=== PATIENT | female | born 1990 | race Caucasian/White ===

== ENCOUNTER 2025-01-28 16:00 | Emergency (ER) | payer OTHER, SELFPAY ==
[2025-01-28 16:02] VITALS: BP 179/119
--- NOTE | 2025-01-28 16:45 | ED.GENMED ---
History of Present Illness
General
Chief Complaint: Flank Pain
Source: patient
Exam Limitations: none
Time Seen by Provider: 01/28/25 16:38
Nursing documentation reviewed up to this point in time: agreed with
History of Present Illness
History of Present Illness:
The patient is a 34-year-old female with history of kidney stones who presents with sharp pain in the right flank region, which started 3 days ago. The patient describes the pain as intense, currently rating it seven to eight out of ten in severity.
Along with the pain, she experiences a sensation of urgency to urinate. The patient reports mild nausea accompanying the pain but denies vomiting. She has not attempted any pain relief on her own. Her menstrual period ended three days ago. Denies
fever/chills.
Past History
Past History
ED Past Medical History: Hyperthyroidism and Other (kidney stone)
ED Past Surgical History: Other (Gastric bypass)
Social History
Tobacco: Non-smoker
Alcohol: None
Drug: None
Personal: Single
Living: with family
Employment: Employed
Family History
Family History: Other (Noncontributory)
Review of Systems
Review of Systems
Allergies reviewed?: Yes
All Other Systems: ROS reviewed and negative except as documented in HPI and ROS
Constitutional: Denies fever or chills
ABD/GI: Reports nausea (mild, intermittent); Denies abdominal pain, vomiting or diarrhea
: Reports frequency and flank pain (right); Denies dysuria, difficulty voiding or urgency
Phy Exam
Physical Exam
Physical Exam:
GENERAL: No acute distress. A&Ox3.
CONSTITUTIONAL: Afebrile.
EYES: clear, conjunctivae normal
ENMT: moist mucus membranes
RESPIRATORY: Regular respirations, nonlabored, lungs clear.
CARDIOVASCULAR: Regular rate and rhythm, no murmurs, no rubs.
GI: Soft, nontender, normal BS
MUSCULOSKELETAL: Moves with ease. Well perfused.
SKIN: Warm, dry, pink
PSYCH: Normal mood and affect. Well kept, interactive and appropriate
NEUROLOGIC: Awake, alert and oriented. No focal neurological deficits
Course
Orders/Labs/Results
Orders:
Orders
01/28/25 16:44
CT Abd/pel Without Iv Or Oral Urgent
Comment:
Reason For Exam: R flank pain, hx stones
IV Insert/Care/Rem.- Treatment PRN
0.9% Sodium Chloride 1000 ml [Nss] 1,000 ml IV BOLUS
Ketorolac [Toradol] 15 mg IV NOW STA
Test Result ONCE
01/28/25 17:20
Complete Blood Count/With Diff Urgent
Comprehensive Metabolic Panel Urgent
HCG, Serum Qualitative Screen Urgent
Urinalysis Reflex To Culture Urgent
Date Specimen was Collected: 01/28/25
Time Specimen was Collected: 17:14
Urine Microscopic Reflex Cult Urgent
Urine Culture Urgent
BESSIE Source: U
Specimen Description:
Date Specimen was Collected: 01/28/25
Time Specimen was Collected: 17:14
01/28/25 19:01
Hydrocodone 5/APAP 325 [Riverside 5/325] 1 tablet PO NOW STA
Abnormal Lab Results
01/28/25
17:20
RBC 3.99 L 10^6/uL
(4.20-5.40)
Hct 35.6 L %
(37.0-47.0)
MCH 31.1 H pg
(27.0-31.0)
MPV 11.5 H fL
(7.4-10.4)
Chloride 111 H mmol/L
(98-107)
Carbon Dioxide 21 L mmol/L
(22-30)
Creatinine 1.1 H mg/dL
(0.6-1.0)
Ur Occult Blood Reflex 4+ A
(Negative)
Leukocyte Esterase Rfl 1+ A
(Negative)
Urine RBC 30-40 A /HPF
(0-2)
Urine Bacteria (Reflex) Moderate A
(Negative)
Urine Albumin (Reflex) 2+ A
(Neg - Trace)
01/28/25 17:20
01/28/25 17:20
Vital Signs
Initial and Last Documented VS:
Initial Vital Signs
Temp Pulse Resp BP Pulse Ox
98.0 F 105 20 179/119 99
01/28/25 16:02 01/28/25 16:02 01/28/25 16:02 01/28/25 16:02 01/28/25 16:02
Last Documented Vital Signs
Temp Pulse Resp BP Pulse Ox
98.0 F 76 20 136/83 99
01/28/25 16:02 01/28/25 18:02 01/28/25 16:02 01/28/25 18:22 01/28/25 18:30
MDM/Problems Addressed
Differential Diagnosis Includes:
UTI, kidney stone, pyelonephritis, hydronephrosis
MDM/Problems Addressed:
The patient is a 34-year-old female with history of kidney stones who presents with sharp pain in the right flank region, which started 3 days ago. The patient describes the pain as intense, currently rating it seven to eight out of ten in severity.
Along with the pain, she experiences a sensation of urgency to urinate. The patient reports mild nausea accompanying the pain but denies vomiting. She has not attempted any pain relief on her own. Her menstrual period ended three days ago. Denies
fever/chills.
Plan:
- Initiate an intravenous line.
- Administer ketorolac for pain management.
- Conduct basic blood work.
- Obtain a CT scan to evaluate for stone/obstruction
- Review the urine sample that has been provided.
- Medication for nausea to be considered if needed.
6:00 PM:
CBC normal
CMP with no clinically significant abnormality
hCG negative
UA: 30-40 RBCs, +1 leukocytes, negative nitrite, moderate bacteria
7:[address] radiology report read: IMPRESSION:
3 mm calculus at the right ureterovesical junction with moderate obstructive uropathy.
Less than 1 mm mid pole right intrarenal nonobstructing calculus.
Patient is comfortable, pain is minimal. Stable for discharge
*Pulse Oximetry
SaO2: 99
Oxygen Mode of Delivery: Room air
Patient hypoxic: not evaluated
*Critical Care Note
Total Time (30-74mins, 75-104mins- exclusive of procedures): Not Applicable
ED Attending Note
-
Portions of this chart may have been created with voice recognition software.� Occasional wrong word or��sound alike� substitutions may have occurred due to the inherent limitations of voice recognition software.
Discharge Plan
Departure
Patient Disposition: Home (Routine Discharge)
Date of Disposition: 01/28/25
Time of Disposition: 19:02
Patient with high blood pressure during this ER visit?: No
Condition: Good
Discharge Problem:
Calculus of distal right ureter
Instructions: Kidney Stones (DC), How to Strain Your Urine
Prescriptions:
New
hydrocodone-acetaminophen 5-325 mg tablet
1 tab PO Q6H PRN (Reason: Pain) Qty: 4 0RF
No Action
etonogestrel-ethinyl estradiol [NuvaRing] 1 VAG.RING ring
1 vag.ring VG MONTHLY
venlafaxine [Effexor XR] 150 MG capsule,extended release 24hr
150 mg PO HS
methimazole 5 MG tablet
5 mg PO HS
Referrals:
Fish Fragoso MD [Active, Urology] - Call in 1-3 days for appt
Med Luna MD [Family Provider, Family Practice]
Activity Restrictions/Additional Instructions:
As we discussed, I sent a prescription to your pharmacy for Riverside (hydrocodone) narcotic pain medication
Ibuprofen 600 mg, with food, every 6 hours as needed for mild to moderate pain and use the Riverside if needed for worse pain.
I provided you with information for the urologist for follow-up.
Return here immediately for worsening pain not relieved with ibuprofen or Riverside, fever or chills or feeling sicker in any way.
Interventions
Interventions:
*Risk Screen - Suicide Last Done: 01/28/25 18:09
*General Assessment Last Done: 01/28/25 16:02
*Neglect/Abuse Screening Last Done: 01/28/25 18:09
*ED- Fall Risk Assessment Last Done: 01/28/25 18:09
*ED COVID-19 Vaccine History Last Done: 01/28/25 18:09
FC-Xznmmc-Lyqlzljtkl Assessment Last Done: 01/28/25 18:10
ED-Female Genitourinary Assessment Last Done: 01/28/25 18:10
Discharge Date and Time
Print Language: SRI LANKAN
[2025-01-28 17:14] VITALS: BMI 40.6
[2025-01-28] MEDS: TORADOL 15 MG IV (17:20)
[2025-01-28] MEDS: NSS 1000 IV (17:22)
[2025-01-28 17:33] LABS: % Basophils 0.8 % (0-2); % Eosinophils 2.4 % (0-6); % Immature Granulocytes 0.2 % (0-0.5); % Lymphocytes 29.7 % (20.5-51.1); % Monocytes 6.5 % (1.7-9.3); % Neutrophils 60.4 % (42.2-75.2); Absolute Basophils 0.1 10^3/uL (0-0.2); Absolute Eosinophils 0.2 10^3/uL (0-0.7); Absolute Lymphocytes 2.5 10^3/uL (1.2-3.4); Absolute Monocytes 0.6 10^3/uL (0.1-0.6); Absolute Neutrophils 5.1 10^3/uL (1.4-6.5); Hematocrit 35.6 % (37.0-47.0); Hemoglobin 12.4 g/dL (12.0-16.0); Mean Corp Hgb Conc. 34.8 g/dL (33.0-37.0); Mean Corpuscular Hgb 31.1 pg (27.0-31.0); Mean Corpuscular Volume 89.2 fL (81.0-99.0); Mean Platelet Volume 11.5 fL (7.4-10.4); Nucleated Red Blood Cells % 0 %; Platelet Count 207 10^3/uL (130-400); Red Blood Cell Count 3.99 10^6/uL (4.20-5.40); Red Cell Dist. Width 12.4 % (11.5-14.5); White Blood Cell Count 8.5 10^3/uL (4.8-10.8)
[2025-01-28 17:35] LABS: Urine Albumin 2+ (Neg - Trace); Urine Bilirubin Negative (Negative); Urine Character Clear (Clear); Urine Color Yellow; Urine Glucose Negative (Negative); Urine Ketone Negative (Negative); Urine Leukocyte 1+ (Negative); Urine Nitrite Negative (Negative); Urine Occult Blood 4+ (Negative); Urine Urobilinogen Negative (Neg - 1+)
[2025-01-28 17:43] LABS: Urine Calcium Oxalate Crystals Present
[2025-01-28 17:45] LABS: HCG, Serum Qualitative Screen Negative; Urine Bacteria Moderate (Negative); Urine Red Blood Cell 30-40 /HPF (0-2)
[2025-01-28 18:01] LABS: ALT (SGPT) 14 U/L (0-35); AST (SGOT) 22 U/L (14-36); Albumin 4.3 g/dl (3.5-5.0); Alkaline Phosphatase 61 U/L (38-126); Blood Urea Nitrogen 17 mg/dl (7-17); Calcium 8.5 mg/dl (8.4-10.2); Carbon Dioxide 21 mmol/L (22-30); Chloride 111 mmol/L (98-107); Estimated Creatinine Clearance 70 ml/min; Glucose 99 mg/dl (70-99); Potassium 3.8 mmol/L (3.5-5.1); Sodium 138 mmol/L (135-145); Total Bilirubin 0.4 mg/dl (0.2-1.3); Total Protein 7.1 g/dl (6.3-8.2); eGFR > 60.00
[2025-01-28 18:22] VITALS: BP 136/83
[2025-01-28 19:00] VITALS: BP 145/94
== END 2025-01-28 19:53 | disposition home or self-care (01) ==
LOC: EMR 16:00
PROVIDERS: Registered Nurse; EMERGENCY PHYSICIAN Emergency Medicine; FAMILY PHYSICIAN Family Medicine
DX: R10.9 Unspecified abdominal pain (principal); E05.90 Thyrotoxicosis, unspecified without thyrotoxic crisis or storm; N20.1 Calculus of ureter; Z87.442 Personal history of urinary calculi; Z98.84 Bariatric surgery status
CPT/HCPCS: 99284; 74176; 80053; 81003; 81015; 84703; 85025; 87086

== ENCOUNTER 2025-04-03 04:01 | Emergency (ER) | payer OTHER, SELFPAY ==
[2025-04-03 04:03] VITALS: BP 158/112
[2025-04-03 04:18] VITALS: BMI 42.5
[2025-04-03] MEDS: BENADRYL 25 MG PO (05:04)
[2025-04-03] MEDS: DECADRON 10 MG PO (05:05)
--- NOTE | 2025-04-03 05:06 | ED.GENMED ---
History of Present Illness
General
Chief Complaint: Allergic Reaction
Source: patient
Exam Limitations: none
Time Seen by Provider: 04/03/25 04:15
Nursing documentation reviewed up to this point in time: agreed with
History of Present Illness
History of Present Illness:
Note:
CHIEF COMPLAINT(S)
Facial swelling and swelling in other parts of the body.
HISTORY OF PRESENT ILLNESS
The patient is a 34-year-old female presenting with facial swelling that began the previous Wednesday afternoon. Initially, she noticed swelling in her body, which then progressed to her face and lips overnight. The patient reports no prior episodes of
similar symptoms. She denies any recent changes in soaps, foods, or any known allergens. No difficulty in breathing or swallowing was noted during the conversation.
PAST MEDICAL AND SURGICAL HISTORY
The patient has a history of thyroid-related issues. No recent surgeries were discussed.
MEDICATIONS
- Thyroid medication (specific name not mentioned)
- Aplexor (potential misspelling, indication unclear)
- Atenolol
PLAN
The patient will be administered a steroid and observed for improvement in symptoms. She will be provided with a prescription for oral steroids for home use and advised to take Benadryl as needed, particularly avoiding activities such as driving
when using Benadryl. Additionally, a prescription for an EpiPen will be provided for potential future anaphylactic events given the unknown trigger of the current symptoms. The patient is advised to refrain from attending work today due to
medication effects.
DIFFERENTIAL DIAGNOSIS
The Differential Diagnosis includes, in no particular order and is not limited to:
1. Allergic reaction
2. Angioedema
3. Anaphylaxis
4. Drug-induced hypersensitivity reaction
5. Contact dermatitis
6. Acute urticaria
7. Food allergy
8. Autoimmune disorder
9. Thyroid disorder-related manifestations
10. Idiopathic swelling
SOCIAL HISTORY
The patient works for the formerly [employer].
Disposition:
SUMMARY OF ENCOUNTER
The patient is a 34-year-old female who presented to the emergency department with facial swelling and swelling in other parts of the body without any breathing or swallowing difficulties. The swelling began the previous Wednesday, starting with her
body and progressing to her face and lips overnight. The patient has no history of similar episodes and denies any known allergens or changes in soaps or foods. Given the uncertain trigger and her medical history, she was treated with steroids in
the emergency department, resulting in significant improvement in symptoms.
DISPOSITION
Discharge
ASSESSMENT
The patient likely experienced an allergic reaction to an unknown substance.
PLAN
The patient is to be discharged with a prescription for oral steroids to manage symptoms at home. She is advised to use Benadryl as needed, with caution advised against engaging in activities such as driving when using Benadryl. Additionally, she is
to be provided with a prescription for an EpiPen for potential future anaphylactic events.
PATIENT EDUCATION AND COUNSELING
The patient was educated on potential allergy triggers and instructed on the use of oral steroids and Benadryl. She was also guided on how to use an EpiPen in case of future anaphylactic episodes.
FOLLOW-UP INSTRUCTIONS
The patient is advised to avoid work today due to the potential sedative effects of her medications.
MEDICATION RECONCILIATION
1. Prescription for oral steroids for home use.
2. Recommended use of Benadryl as needed.
3. Prescription for an EpiPen for future use.
MEDICAL DECISION MAKING
-Complexity of Data Reviewed: Chronic conditions affecting care include thyroid-related issues. Differential diagnosis considerations include allergic reaction, angioedema, anaphylaxis, drug-induced hypersensitivity reaction, contact dermatitis,
acute urticaria, food allergy, autoimmune disorder, thyroid disorder-related manifestations, and idiopathic swelling.
-Risk: Prescription drug management was pursued, with medications prescribed to manage the allergic reaction and prevent potential future anaphylactic events.
DIAGNOSIS
Allergic reaction (ICD-10 code: T78.40XA).
Past History
Past History
ED Past Medical History: Hyperthyroidism and Other (kidney stone)
ED Past Surgical History: Other (Gastric bypass)
Social History
Tobacco: Non-smoker
Alcohol: None
Drug: None
Personal: Single
Living: with family
Employment: Employed
Family History
Family History: Other (Noncontributory)
Phy Exam
Physical Exam
Physical Exam:
Diffuse urticaria on the extremities and torso
General Physical Exam
General Presentation: well appearing and no apparent distress
General Skin: warm and dry
General Habitus: normal
General Mental: alert
General Hydration: appears well hydrated
ENT Exam
ENT Exam: EOMI, pharynx normal, neck supple and normocephalic
Eye Exam
Eye Exam: PERRL, cornea clear and conjunctiva normal
Cardiovascular Exam
Cardiovascular Exam: regular rate/rhythm, no edema, no murmur and normal peripheral pulses
Pulmonary Exam
Pulmonary Exam: lungs clear and no respiratory distress
Gastrointestinal Exam
Gastrointestinal Exam: normal bowel sounds, non tender, soft, no organomegaly, no pulsatile mass and non distended
Neurological Exam
Neurological Exam: alert, oriented x3, no motor deficits and speech normal
Musculoskeletal Exam
Musculoskeletal Exam: full ROM and no edema
Skin Exam
Skin Exam: normal color, warm/dry, no rash, no petechia and other (Diffuse urticaria)
Psychiatric Exam
Psychiatric Exam: normal mood/affect
Course
Orders/Labs/Results
Orders:
Orders
04/03/25 05:01
Dexamethasone Pf [Decadron] 10 mg .ROUTE .STK-MED ONE
Diphenhydramine [Benadryl] 25 mg .ROUTE .STK-MED ONE
04/03/25 05:04
Diphenhydramine [Benadryl] 25 mg PO NOW STA
04/03/25 05:05
Dexamethasone Pf [Decadron] 10 mg PO NOW STA
Vital Signs
Initial and Last Documented VS:
Initial Vital Signs
Temp Pulse Resp BP Pulse Ox
97.4 F 114 20 158/112 100
04/03/25 04:03 04/03/25 04:03 04/03/25 04:03 04/03/25 04:03 04/03/25 04:03
Last Documented Vital Signs
Temp Pulse Resp BP Pulse Ox
97.4 F 91 18 125/84 100
04/03/25 04:03 04/03/25 05:10 04/03/25 06:33 04/03/25 05:10 04/03/25 06:33
*Pulse Oximetry
SaO2: 100
Oxygen Mode of Delivery: Room air
Patient hypoxic: no
*Critical Care Note
Total Time (30-74mins, 75-104mins- exclusive of procedures): Not Applicable
ED Attending Note
-
Portions of this chart may have been created with voice recognition software.� Occasional wrong word or��sound alike� substitutions may have occurred due to the inherent limitations of voice recognition software.
Discharge Plan
Departure
Patient Disposition: Home (Routine Discharge)
Date of Disposition: 04/03/25
Time of Disposition: 07:08
Patient with high blood pressure during this ER visit?: Yes
Condition: Good
Discharge Problem:
Allergic reaction
Instructions: Hives (DC), BLOOD PRESSURE
Prescriptions:
New
diphenhydramine HCl [Benadryl] 25 mg capsule
25 mg PO TID PRN (Reason: allergy symptoms) Qty: 14 0RF
prednisone 50 mg Tablet
50 mg PO DAILY Qty: 5 0RF
epinephrine [EpiPen] 0.3 mg/0.3 mL Auto-Injector
0.3 mg IM .STAT PRN (Reason: anaphylaxis) Qty: 1 0RF
famotidine [Pepcid] 20 mg tablet
20 mg PO BID Qty: 14 0RF
No Action
etonogestrel-ethinyl estradiol [NuvaRing] 1 VAG.RING ring
1 vag.ring VG MONTHLY
venlafaxine [Effexor XR] 150 MG capsule,extended release 24hr
150 mg PO HS
methimazole 5 MG tablet
5 mg PO HS
Referrals:
Med Luna MD [Family Provider, Family Practice]
Anne Sutton MD [Consulting Staff, Technical Coordinator]
Stand Alone Forms: Return to Work
Activity Restrictions/Additional Instructions:
Thank You for choosing [facility].
It was a pleasure meeting you and taking part in your care. We hope for your continued healing and wellness.
Please read discharge instructions in their entirety. However, they are for general education and may not describe your exact diagnosis at discharge. Information on your ER visit and medical conditions were discussed with you along with appropriate
follow up information...
If indicated, please take your medications as instructed and indicated on discharge paperwork.
Please schedule a follow up appointment as directed. Call to schedule an appointment
Please return to the emergency department with ANY change in, persisting, or worsening of symptoms. If any of your symptoms do not improve, or persist, or become more severe within 6-12 hours, please return to the emergency department for further
care.
Please return to the emergency department if you develop a headache, neck pain/stiffness, fever greater than 100.4F, chest pain, shortness of breath, persistent nausea, vomiting, slurred speech, difficulty walking, numbness/tingling, weakness, signs
of infection or any other symptoms that are worrisome to you.
If you have any questions or concerns please do not hesitate to call the Hospital at or E-mail me directly at
Interventions
Interventions:
*Risk Screen - Suicide Last Done: 04/03/25 04:03
*General Assessment Last Done: 04/03/25 06:32
*Neglect/Abuse Screening Last Done: 04/03/25 04:03
*ED- Fall Risk Assessment Last Done: 04/03/25 04:18
*ED COVID-19 Vaccine History Last Done: 04/03/25 04:18
ED- Cardiac Assessment Last Done: 04/03/25 04:18
ED- Pulmonary Assessment Last Done: 04/03/25 04:18
ED-Skin Assessment Last Done: 04/03/25 04:18
Discharge Date and Time
Print Language: [id number]
[2025-04-03 05:10] VITALS: BP 125/84
[2025-04-03 07:37] VITALS: BP 118/80
== END 2025-04-03 07:38 | disposition home or self-care (01) ==
LOC: EMR 04:01
PROVIDERS: EMERGENCY PHYSICIAN Student in an Organized Health Care Education/Training Program; FAMILY PHYSICIAN Family Medicine
DX: T78.40XA Allergy, unspecified, initial encounter (principal); X58.XXXA Exposure to other specified factors, initial encounter; Z98.84 Bariatric surgery status
CPT/HCPCS: 99283